=== PATIENT | female | born 1950 | race Caucasian/White ===

== ENCOUNTER → 2019-01-21 13:50 | Outpatient (CLI) | payer MEDICARE, SELFPAY ==
[2019-01-21 15:52] LABS: Body Fluid Mononuclear WBC % 42.6 %; Body Fluid Polynuclear WBC # 0.135 10^3/uL; Body Fluid Polynuclear WBC % 57.4 %; Body Fluid Total Cells Counted 0.236 10^3/ul (0.000-0.000); White Blood Count/Body Fluid 0.235 10^3/uL
[2019-01-21 16:41] LABS: Appearance/Body Fluid CLOUDY; Auto B Fluid Analyzer BKGD Ct COUNTS W/IN LIMITS (W/IN LIMITS); Color/Body Fluid COLORLESS; Red Cell Count/Body Fluid 4 /mm3; Source- Body Fluid PERITONEAL FLUID
[2019-01-21 16:42] LABS: Lymphocytes 18 %; Monocytes 9 %; Neutrophil (Segs) 16 %; Other Cell Type/BF 57 %
[2019-01-24 14:42] LABS: Pathologist Comment/Body Fluid Reviewed
== END ==
PROVIDERS: Family Provider Family Medicine; PCP Family Medicine; Referring Provider Internal Medicine Nephrology; Visit Provider Internal Medicine Nephrology
DX: N18.6 End stage renal disease (principal)
CPT/HCPCS: 87070; 87075; 87101; 87205; 89050

== ENCOUNTER → 2019-02-02 14:52 | Outpatient (CLI) | payer MEDICARE, SELFPAY ==
[2015-03-26 07:37] VITALS: BMI 25.8
[2019-02-02 18:29] LABS: Body Fluid Mononuclear WBC # 0.009 10^3/uL; Body Fluid Mononuclear WBC % 64.3 %; Body Fluid Polynuclear WBC # 0.005 10^3/uL; Body Fluid Polynuclear WBC % 35.7 %; Body Fluid Total Cells Counted 0.014 10^3/ul (0.000-0.000); White Blood Count/Body Fluid 0.014 10^3/uL
[2019-02-02 21:03] LABS: Auto B Fluid Analyzer BKGD Ct COUNTS W/IN LIMITS (W/IN LIMITS); Color/Body Fluid COLORLESS; Source- Body Fluid THORACENTESIS
[2019-02-02 21:04] LABS: Appearance/Body Fluid CLOUDY; Body Fluid QC Type(s) BF2Q
[2019-02-03 14:33] LABS: Pathologist Comment/Body Fluid Reviewed
== END ==
PROVIDERS: Family Provider Family Medicine; PCP Family Medicine; Visit Provider Internal Medicine Nephrology
DX: Z00.01 Encounter for general adult medical examination with abnormal findings (principal)
CPT/HCPCS: 87070; 87075; 87101; 87205; 89050

== ENCOUNTER 2020-08-06 15:00 | Outpatient (RCR) | payer MEDICARE, MEDICAID, SELFPAY ==
--- NOTE | 2020-08-01 15:30 | HP.PTEVAL_ITS ---
Patient's Visit Information KAVON BUCHANAN is a 69 year old F referred to Physical Therapy by Dr. Kana Blake MD with a diagnosis of BACK PAIN,SPONDYLOSIS. Date of Evaluation: 08/01/20 Physical Therapist: Alejandro Poole PT, Cert MDT, OCS - Visit Plan Frequency: 2x /Week Duration: 4 Weeks Plan: PT INTERAVENTION DLS,POSTURAL EX'S,LE FLEXABLITY/STRENGTHENING,THORACIC STRENGTHENING, ,MODALTIES - Subjective This 69 y/o female presents to physical therapy with back pain.Patient has back pain since March 17 no predisosing factors. Patient described symptoms as ache and occassional spasms. Seen Dr recommended PT . Aggravating factors sitting, sleeping,walking,standing affects ADL's. Alleviating factors rest. Denies parathesia/tingling, Bowel/bladder -. Coughing/sneezing -. No prior trauma. No prior treatment.Patient pain affects sleeping. Pain in lumbar at worse is 9/10. Patient has had x-rays.Patient pain affects function QOL. SOCIAL: single. VOCATION: retired - Objective POSTURE: mild foward posture ,mod thoracic kyphosis. GAIT: reciprocal pattern. NEURO: denies parathesia/tingling,reflexes L3-4,L4-5,L5-S1 1/3. PALAPTION: unremarkable. LUMBAR ROM: flexion mod loss,extension loss,side glides min loss. THORACIC ROM: flexion/extension mod loss. MMT: quads/hams 4/5,hip flexion 4- /5,ankle 4/5. FLEXABLITY: hams inl tight - Special Tests Thoracic Sitting: Flexion - Mechanical Response: No effect Thoracic Sitting: Flexion - Symptoms During Testing: No effect Thoracic Sitting: Flexion - Symptoms After Testing: No effect Thoracic Sitting: Extension - Mechanical Response: No effect Thoracic Sitting: Extension - Symptoms During Testing: No effect Thoracic Sitting: Extension - Symptoms After Testing: No effect L/S Slump test left side: Negative L/S Slump test right side: Negative L/S Left Straight Leg Raise: Negative L/S Right Straight Leg Raise: Negative Lumbar Standing: Flexion - Mechanical Response: No effect Lumbar Standing: Flexion - Symptoms During Testing: No effect Lumbar Standing: Flexion - Symptoms After Testing: No effect Lumbar Standing: Extension - Mechanical Response: No effect Lumbar Standing: Extension - Symptoms During Testing: No effect Lumbar Standing: Extension - Symptoms After Testing: No effect Lumbar Standing: Right Side Glides - Mechanical Response: No effect Lumbar Standing: Right Side [place] - Symptoms During Testing: No effect Lumbar Standing: Right Side [place] - Symptoms After Testing: No effect Lumbar Standing: Left Side [place] - Mechanical Response: No effect Lumbar Standing: Left Side [place] - Symptoms During Testing: No effect Lumbar Standing: Left Side [place] - Symptoms After Testing: No effect - Goals Goal 1:: I with HEP. Goal Time Frame: 4-6 Weeks Goal 2:: Improve posture/body mechanics for ADL's Goal Time Frame: 4-6 Weeks Goal 3:: Decrease lumbar pain by 50 % or > to improve function and ADL's Goal Time Frame: 4-6 Weeks Goal 4:: Patient to improve lumbar ROM for function of recovery Goal Time Frame: 4-6 Weeks Goal 5:: Patient to improve back owestrty score by 5 points or > to improve QOL. Goal Time Frame: 4-6 Weeks - Rehabilitation Potential Physical Therapy Diagnosis: This patient has symmmtical lumbar/thoracic pain with decrease ROM for function of recovery ,postural and core deficits thus benifit from skilled PT Rehabilitation Potential: Good - Anticipated Interventions Patient/Client Instruction: Educate patient on: Condition, Plan of Care For the Purpose of:: To decrease pain, To increase ROM, To improve muscle performance and motor function, To improve ability to perform ADL's, To increase tolerance to activity/condition/position, To improve ability of physical actions for home/community/work/leisure, To improve health of tissue, To decrease soft tissue restriction, To increase flexibility/ROM, To reduce risk of recurrence, To improve ability to perform tasks related to life management Therapeutic Exercise to Include: Strength training, Body mechanics, Postural training, Flexibilty training, Dynamic Lumbar Stabilization For the Purpose of:: To decrease pain, To increase ROM, To improve muscle performance and motor function, To improve ability to perform ADL's, To increase tolerance to activity/condition/position, To improve ability of physical actions for home/community/work/leisure, To improve health of tissue, To decrease soft tissue restriction, To reduce risk of recurrence, To improve ability to perform tasks related to life management TENS: Yes IF ES: Yes Cryotherapy (ice pack, ice massage): Yes Thermo therapy (hot pack): Yes Ultrasound (thermal/non thermal): Yes For the Purpose of:: To decrease pain, To increase ROM, To improve health of tis gris, To decrease soft tissue restriction Thank you for the opportunity to evaluate your patient. For Medicare and Medicare HMO plans, please review the plan of care and approve it. It will need to be FAXED BACK to us at [phone] for Medicare purposes. For Medicare only, by signing this I certify the plan of care. Please let me know if there are questions or concerns regarding this plan of care. Physician Signature: Date:
--- NOTE | 2020-08-22 08:45 | HP.PT.NRP ---
KAVON BUCHANAN was seen in my office for initial evaluation on 08/01/20. The following Plan of Care was established for this patient: Initial Frequency: 2x /Week Initial Duration: 4 Weeks Patient/Client Instruction: Educate patient on: Condition, Plan of Care For the Purpose of:: To decrease pain, To increase ROM, To improve muscle performance and motor function, To improve ability to perform ADL's, To increase tolerance to activity/condition/position, To improve ability of physical actions for home/community/work/leisure, To improve health of tissue, To decrease soft tissue restriction, To increase flexibility/ROM, To reduce risk of recurrence, To improve ability to perform tasks related to life management Therapeutic Exercise to Include: Strength training, Body mechanics, Postural training, Flexibilty training, Dynamic Lumbar Stabilization For the Purpose of:: To decrease pain, To increase ROM, To improve muscle performance and motor function, To improve ability to perform ADL's, To increase tolerance to activity/condition/position, To improve ability of physical actions for home/community/work/leisure, To improve health of tissue, To decrease soft tissue restriction, To reduce risk of recurrence, To improve ability to perform tasks related to life management TENS: Yes IF ES: Yes Cryotherapy (ice pack, ice massage): Yes Thermo therapy (hot pack): Yes Ultrasound (thermal/non thermal): Yes For the Purpose of:: To decrease pain, To increase ROM, To improve health of tissue, To decrease soft tissue restriction This patient was last seen in our office . Pertinent comments regarding their Physical therapy will appear below: Patient seen for pt for back pain and is d/c to HEP. At this point I will be discontinuing this patient from physical therapy. I would be happy to see this patient again in the future if found appropriate by the physician. Thank you! Alejandro Poole, PT, Cert MDT, OCS
== END 2020-08-06 19:00 | disposition home or self-care (01) ==
LOC: PT 15:00
PROVIDERS: PCP Family Medicine; Referring Provider Family Medicine; Visit Provider Family Medicine
DX: M47.9 Spondylosis, unspecified (principal)
CPT/HCPCS: 97110; 97162

== ENCOUNTER → 2021-08-30 09:14 | Outpatient (CLI) | payer MEDICARE, MEDICAID, SELFPAY ==
--- NOTE | 2021-08-30 | ASPOS_PTH ---
PATIENT: KAVON BUCHANAN LOC: LAB U#:[id number] AGE/SX: 74/F ROOM: RE08/30/[address]: Dr. Hai Silverio DO : 1950 BED: DIS: SPEC #: [id number] RECD: 08/30/21 10:59 STATUS: RICKEY REFabricio #: [id number] JAYNA: 08/30/21 00:[address]: Stevenson [place] DEPT: CYTOLOGY RECD BY: Mando Dobbins ENTERED: 08/30/21 11:00 SP TYPE: ASP HERE OTHR DR: DO Dr. Kana Maldonado MD Tissues: Neck, NOS Procedures: Surgery Specimen Level IV Cytology Other Fine Needle Asp on Site Comments: @ Ordering doctor for SUIV edited from to DR.CWARTM Connor by CANDE at 08/30/21 153 @ Ordering doctor for CYOTHER edited from to DR.CWARTM Connor by CANDE at 08/30/21 1532 @ Ordering doctor for FNAOS edited from to DR.CWARTM Connor by CANDE at 08/30/21 1532 @ Submitting doctor edited from to DR.CWARTM Connor by RGOOD at 08/30/21 1532 HEADER OPERATION: Fine needle aspiration, left neck mass PRE-OP DIAGNOSIS: Left neck mass TISSUE SUBMITTED: FNA left neck mass DIAGNOSIS CYTOLOGY Fine needle aspiration, left neck mass (smears and cell block): Negative for malignant cells. See comment. AM:saul 09/02/2021 COMMENT The specimen is evaluated at the time of FNA by Dr. Silverio. Immediate Evaluation = Macrophages and dystrophic microcalcifications. The specimen contains abundant dystrophic microcalcifications and histiocytes including foreign body type giant cell. There is no evidence of malignancy. Clinical correlation is suggested. CYTOLOGY STUDY Slides are reviewed. CYTOLOGY GROSS Received is 0.5 ml of reddish labeled with the patient's name, and designated left neck mass. Eight imprints and two paps are made from the submitted fluid and the rest is added to CytoL[employer] for cell block preparation. Submitted for cytology study. / AM:saul 08/30/2021 TC:5 CPT: 63344, 52461, 28958, 13036
== END ==
PROVIDERS: PCP Family Medicine; Visit Provider Pathology Anatomic Pathology & Clinical Pathology
DX: R22.1 Localized swelling, mass and lump, neck (principal)
CPT/HCPCS: 10021; 88161; 88305